=== PATIENT | female | born 1985 | race Caucasian/White ===

== ENCOUNTER 2017-05-24 00:51 | Inpatient (IN) | payer BC ==
[~2017-05-24] VITALS: Ht 167.6 cm; Wt 82.7 kg
[2017-05-24] MEDS ORDERED: OXYTOCIN 30U/ 0.9% NaCL 500ML 500 ML ONE (00:59)
[2017-05-24] MEDS ORDERED: NEWBORN KIT ONE (00:59)
[2017-05-24] MEDS ORDERED: MISOPROSTOL 200 MCG TABLET ONE (01:01)
[2017-05-24] MEDS ORDERED: LIDOCAINE 1%, 20ML ONE (01:01)
[2017-05-24] MEDS ORDERED: D5%-LACTATED RINGERS 1,000 ML IV SCH (01:13)
[2017-05-24] MEDS ORDERED: OXYTOCIN 30U/ 0.9% NaCL 500ML 500 ML IV ONE (01:13)
[2017-05-24] MEDS ORDERED: LACTATED RINGERS 1,000 ML IV SCH (01:13)
[2017-05-24] MEDS ORDERED: SODIUM CITRATE/CITRIC ACID 30 ML UDC PO PRN (01:30)
[2017-05-24] MEDS ORDERED: ALUMINUM/MAG/SIMETHICONE 30 ML UDC PO PRN (01:30)
[2017-05-24] MEDS ORDERED: FENTANYL PF 100 MCG/2ML IV PRN (01:30)
[2017-05-24] MEDS ORDERED: FENTANYL PF 100 MCG/2ML IVPush PRN (01:30)
[2017-05-24] MEDS ORDERED: TERBUTALINE 1 MG/ML, 1ML IVPush PRN ×2 (01:30)
[2017-05-24] MEDS ORDERED: CALCIUM CARBONATE 500 MG TAB.CHEW PO PRN ×2 (01:30→03:30)
[2017-05-24] MEDS: PLEASE ENTER ALLERGIES MC SCH ×16 (01:30→08:30)
[2017-05-24] MEDS ORDERED: METOCLOPRAMIDE 5 MG/ML, 2ML IVPush PRN (01:30)
[2017-05-24] MEDS ORDERED: ONDANSETRON 2MG/ML, 2ML IVPush PRN (01:30)
[2017-05-24] MEDS ORDERED: TERBUTALINE 1 MG/ML, 1ML ONE (01:32)
[2017-05-24] MEDS ORDERED: FENTANYL PF 100 MCG/2ML ONE (02:24)
[2017-05-24] MEDS: IBUPROFEN 600 MG TABLET PO PRN ×3 (02:45→15:20)
[2017-05-24] MEDS ORDERED: IBUPROFEN 600 MG TABLET ONE (02:45)
[2017-05-24 03:08] VITALS: BP 120/78
[2017-05-24] MEDS: OXYTOCIN 30U/ 0.9% NaCL 500ML 500 ML IV SCH ×2 (03:17→13:17)
[2017-05-24] MEDS ORDERED: DOCUSATE 100 MG CAPSULE PO PRN (03:30)
[2017-05-24] MEDS ORDERED: HYDROcodone/APAP 10/325 MG TABLET PO PRN (03:30)
[2017-05-24] MEDS ORDERED: ONDANSETRON 2MG/ML, 2ML IV PRN ×2 (03:30→19:30)
[2017-05-24] MEDS ORDERED: MAGNESIUM HYDROXIDE 8%, 30ML UDC PO PRN (03:30)
[2017-05-24] MEDS ORDERED: METHYLERGONOVINE 0.2 MG/ML IM PRN (03:30)
[2017-05-24] MEDS ORDERED: CARBOPROST TROMETHAMINE 250 MCG/ML, 1ML IM PRN (03:30)
[2017-05-24] MEDS ORDERED: MEASLES,MUMPS&RUBELLA VACC/PF 0.5 ML SQ PRN (03:30)
[2017-05-24] MEDS ORDERED: METOCLOPRAMIDE 5 MG/ML, 2ML IV PRN (03:30)
[2017-05-24] MEDS ORDERED: HYDROcodone/APAP 5/325 TABLET PO PRN (03:30)
[2017-05-24] MEDS ORDERED: BISACODYL 10 MG SUPP PR PRN (03:30)
[2017-05-24] MEDS ORDERED: DIPH,PERTUSS(ACELL),TET VAC/PF NC IM-VACC PRN (03:30)
[2017-05-24] MEDS ORDERED: RHOGAM FROM BLOOD BANK 1 NOTE EA IM/IV ONE (03:30)
[2017-05-24] MEDS ORDERED: MISOPROSTOL 200 MCG TABLET PR PRN (03:30)
[2017-05-24] MEDS ORDERED: ACETAMINOPHEN 325 MG TABLET PO PRN ×2 (03:30)
[2017-05-24] MEDS ORDERED: GLYCERIN ADULT SUPP PR PRN (03:30)
[2017-05-24 04:15] VITALS: BP 101/62
[2017-05-24 08:48] VITALS: BP 108/63
[2017-05-24] MEDS ORDERED: PRENATAL VIT/IRON/FA 1 EACH TABLET PO SCH (09:00)
[2017-05-24 10:23] LABS: DIFF TOTAL CELLS COUNTED 100 CELL DIFF
[2017-05-24 10:26] LABS: VERIFY COUNTS? YES
[2017-05-24 13:21] VITALS: BP 128/72
[2017-05-24] MEDS ORDERED: IBUP-1222 PO (16:52)
[2017-05-25] MEDS ORDERED: PRENATAL VIT/IRON/FA 1 EACH TABLET PO SCH (09:00)
== END 2017-05-24 19:43 | disposition home or self-care (01) | DRG 767 ==
LOC: LDOP 00:51 → LDIP 01:20 → 2NW 04:00
PROVIDERS: ADMIT Student in an Organized Health Care Education/Training Program; ATTEND Student in an Organized Health Care Education/Training Program
PROC: 10E0XZZ Delivery of Products of Conception, External Approach (ICD-10-PCS; principal; 2017-05-24)
PROC: 10D17ZZ Extraction of Products of Conception, Retained, Via Natural or Artificial Opening (ICD-10-PCS; 2017-05-24)
PROC: 0HQ9XZZ Repair Perineum Skin, External Approach (ICD-10-PCS; 2017-05-24)
DX: O62.3 Precipitate labor (principal); O73.0 Retained placenta without hemorrhage; Z3A.40 40 weeks gestation of pregnancy; Z37.0 Single live birth; O99.284 Endocrine, nutritional and metabolic diseases complicating childbirth; O70.0 First degree perineal laceration during delivery; O76 Abnormality in fetal heart rate and rhythm complicating labor and delivery; O71.82 Other specified trauma to perineum and vulva; Z87.440 Personal history of urinary (tract) infections; Z90.49 Acquired absence of other specified parts of digestive tract; E03.9 Hypothyroidism, unspecified
CPT/HCPCS: 36415; 85025; 86850; 86900; J3010; J2590; J3105; J7120